=== PATIENT | female | born 1995 | race Caucasian/White ===

== ENCOUNTER 2024-01-16 12:03 | Emergency (ER) | payer OTHER, SELFPAY ==
[2024-01-16 12:05] VITALS: BP 110/58
--- NOTE | 2024-01-16 12:48 | ED.GENMED ---
History of Present Illness
<YOU Menezes Last Filed: 01/16/24 18:23>
General
Chief Complaint: Problems
Source: patient
Exam Limitations: none
Time Seen by Provider: 01/16/24 12:47
Nursing documentation reviewed up to this point in time: agreed with
History of Present Illness
History of Present Illness:
This is a 28-year-old female presenting to emergency department today with concerns of left-sided pelvic cramping. Patient estimates that she is around 7 weeks . Patient came from this with him test but has not seen an
meat specialist or family doctor yet. Patient denies any vaginal bleeding, any discharge. Patient denies any fevers or chills. Patient states that she has 2 living children currently and has had multiple miscarriages in the past and has had to have
a molar removed as well as an ectopic . Patient does have both ovaries. Patient states that her last menstrual period was 10/18/2023. Patient states that her 2 previous full-term pregnancies were unremarkable and she did not
have any issues during them. Patient denies chest pain, shortness of breath. Patient denies headache. Patient has some mild associated nausea. Patient denies any vomiting.
Past History
<Gris Hernández PA-C - Last Filed: 01/16/24 18:23>
Past History
ED Past Medical History: Psychiatric (Anxiety); Negative Asthma, HTN, Hypercholesterolemia or NIDDM
ED Past Surgical History: None
Social History
Tobacco: Other (VAPS)
Alcohol: Occasional
Personal:
Living: with family
Employment: Employed
Review of Systems
<YOU Menezes Last Filed: 01/16/24 18:23>
Review of Systems
All Other Systems: ROS reviewed and negative except as documented in HPI and ROS
Phy Exam
<Gris Hernández PA-C - Last Filed: 01/16/24 18:23>
Physical Exam
Physical Exam:
General: Patient is well appearing and in no acute distress; non-toxic
Skin: Warm and dry, no rashes or lesions
Head: Normocephalic, atraumatic
Eyes: Sclera non-icteric. EOMs intact. PERRLA.
Cardiac: Regular rate and rhythm, no murmurs.
Peripheral Vascular: No lower extremity swelling or edema
Pulm: Normal respiratory effort, equal breath sounds bilaterally
Abdomen: Left adnexal tenderness palpation. No palpable masses.
Neuro: CN II-XII intact, no focal neurologic deficits.
Psychiatric: Appropriate mood and affect.
Course
<Gris Hernández PA-C - Last Filed: 01/16/24 18:23>
Orders/Labs/Results
Orders:
Orders
01/16/24 12:48
US W Transvaginal Urgent
Reason For Exam: lower abdoominal pain 7-10 weeks
01/16/24 13:11
Type+Screen Urgent
Complete Blood Count/With Diff Urgent
Comprehensive Metabolic Panel Urgent
HCG, Beta Quantitative [Beta HCG Quantitative] Urgent
Is this a screen?: No
Abnormal Lab Results
01/16/24
13:11
Creatinine 0.5 L mg/dL
(0.6-1.0)
01/16/24 13:11
01/16/24 13:11
Vital Signs
Initial and Last Documented VS:
Initial Vital Signs
Temp Pulse BP Pulse Ox
99.0 F 86 110/58 99
01/16/24 12:05 01/16/24 12:05 01/16/24 12:05 01/16/24 12:05
Last Documented Vital Signs
Temp Pulse Resp BP Pulse Ox
98.2 F 88 16 107/66 98
01/16/24 16:33 01/16/24 16:33 01/16/24 16:33 01/16/24 16:33 01/16/24 16:33
Information
Weeks gestation: Weeks: (4)
Location: Location: (uterus)
<Eze Ceja DO - Last Filed: 01/16/24 13:21>
Orders/Labs/Results
Orders:
Orders
01/16/24 12:48
US W Transvaginal Urgent
Reason For Exam: lower abdoominal pain 7-10 weeks
01/16/24 13:11
Type+Screen Urgent
Complete Blood Count/With Diff Urgent
Comprehensive Metabolic Panel Urgent
HCG, Beta Quantitative [Beta HCG Quantitative] Urgent
Is this a screen?: No
Abnormal Lab Results
01/16/24
13:11
Creatinine 0.5 L mg/dL
(0.6-1.0)
01/16/24 13:11
01/16/24 13:11
Vital Signs
Initial and Last Documented VS:
Initial Vital Signs
Temp Pulse BP Pulse Ox
99.0 F 86 110/58 99
01/16/24 12:05 01/16/24 12:05 01/16/24 12:05 01/16/24 12:05
Last Documented Vital Signs
Temp Pulse Resp BP Pulse Ox
98.2 F 88 16 107/66 98
01/16/24 16:33 01/16/24 16:33 01/16/24 16:33 01/16/24 16:33 01/16/24 16:33
<Gris Hernández PA-C - Last Filed: 01/16/24 18:23>
MDM/Problems Addressed
Differential Diagnosis Includes:
ddx include ectopic , intrauterine , threatened , spontaneous miscarriage,'s symptoms
MDM/Problems Addressed:
Left sided pelvic pain:
This is a 28-year-old female presenting to emergency department today with concerns of left-sided pelvic cramping. Patient has no vaginal bleeding, her CBC and CMP are within normal limits, no anemia. Her beta HCG is 2,188 and her pelvic
ultrasound reveals a small intrauterine gestational sac with estimated gestational age of 4 weeks and 6 days, no embryo or heartbeat identified, however quantitative beta relatively low. This likely represents a early intrauterine and see
however a spontaneous is not a consideration. Considering these findings, patient needs to follow-up with an BUTTON RECLAIMER promptly. Patient currently has no BUTTON RECLAIMER. I advised patient to call the attached number and encourage that she call as
soon as possible. Patient stable for discharge. I reviewed case with my attending Dr. Ceja.
Chronic conditions affecting care:
ddx include anemia, ptsd, bipolar
Acute Exacerbation and/or Progression of Chronic Illness:
ddx include anemia, ptsd, bipolar
<Gris Hernández PA-C - Last Filed: 01/16/24 18:23>
*Pulse Oximetry
Patient hypoxic: no
*Critical Care Note
Total Time (30-74mins, 75-104mins- exclusive of procedures): Not Applicable
Data Reviewed
Review of Other/Old Records Reveals: Records (Reviewed ER physician documentation from 04/11/2020)
Source: patient and records
<Gris Hernández PA-C - Last Filed: 01/16/24 18:23>
Patient Management
Escalation/DeEscalation of care consider admission/obs:
Admission not indicated
ED Attending Note
<Gris Hernández PA-C - Last Filed: 01/16/24 18:23>
-
Portions of this chart may have been created with voice recognition software.� Occasional wrong word or��sound alike� substitutions may have occurred due to the inherent limitations of voice recognition software.
<Eze Ceja, - Last Filed: 01/16/24 13:21>
ED Attending Note
Patient seen and examined by attending physician: Yes
I performed the substantive portion of visit, reviewed & personally made and approve the management plan that is documented in note by myself or YAZMIN.: Yes
ED Attending Note:
Seen with PA examined independently 28-year-old female multiple prior pregnancies 2 live children 1 ectopic 1 molar numerous miscarriages presents early left lower abdominal pain nontoxic-appearing, check beta quant, type and Rh ultrasound
Discharge Plan
Departure
Patient Disposition: Home (Routine Discharge)
Date of Disposition: 01/16/24
Time of Disposition: 16:26
Patient with high blood pressure during this ER visit?: Yes
Condition: Good
Discharge Problem:
First trimester
Instructions: symptoms, BLOOD PRESSURE
Prescriptions:
No Action
Vitamin
1 tab PO DAILY
ibuprofen 600 mg Tablet
600 mg PO Q6HPRN PRN (Reason: moderate pain/cramps) Qty: 30 0RF
Referrals:
Bladimir Vargas MD [Active] - Call in 1-3 days for appt
NONE,* [Family Provider] -
Activity Restrictions/Additional Instructions:
Please return emergency department should you experience vaginal bleeding, acute increase of your pain, dizziness, chest pain, shortness of breath, or any other concerns/symptoms.
Please call the attached number to schedule follow-up with an meat specialist.
Interventions
Interventions:
*Risk Screen - Suicide Last Done: 01/16/24 12:09
*General Assessment Last Done: 01/16/24 13:02
*Neglect/Abuse Screening Last Done: 01/16/24 12:09
ED- Fall Risk Assessment Last Done: 01/16/24 13:03
*ED COVID-19 Vaccine History Last Done: 01/16/24 12:09
*Nursing Disposition Last Done: 01/16/24 16:33
ED-Female Genitourinary Assessment Last Done: 01/16/24 12:56
Discharge Date and Time
Discharge Date/Time: 01/16/24 16:34
Print Language: [place]
[2024-01-16 13:25] LABS: % Basophils 0.4 % (0-2); % Immature Granulocytes 0.1 % (0-0.5); % Lymphocytes 28.2 % (20.5-51.1); % Monocytes 6.5 % (1.7-9.3); % Neutrophils 63.8 % (42.2-75.2); Absolute Eosinophils 0.1 10^3/uL (0-0.7); Absolute Monocytes 0.5 10^3/uL (0.1-0.6); Absolute Neutrophils 4.5 10^3/uL (1.4-6.5); Hematocrit 39.7 % (37.0-47.0); Hemoglobin 13.8 g/dL (12.0-16.0); Mean Corp Hgb Conc. 34.8 g/dL (33.0-37.0); Mean Corpuscular Hgb 29.8 pg (27.0-31.0); Mean Corpuscular Volume 85.7 fL (81.0-99.0); Nucleated Red Blood Cells % 0 %; Platelet Count 283 10^3/uL (130-400); Red Blood Cell Count 4.63 10^6/uL (4.20-5.40); Red Cell Dist. Width 12.6 % (11.5-14.5); White Blood Cell Count 7.1 10^3/uL (4.8-10.8)
[2024-01-16 13:42] LABS: ALT (SGPT) 18 U/L (0-35); AST (SGOT) 22 U/L (14-36); Albumin 4.6 g/dl (3.5-5.0); Alkaline Phosphatase 47 U/L (38-126); Blood Urea Nitrogen 9 mg/dl (7-17); Calcium 9.8 mg/dl (8.4-10.2); Carbon Dioxide 24 mmol/L (22-30); Chloride 105 mmol/L (98-107); Estimated Creatinine Clearance 107 ml/min; Glucose 92 mg/dl (70-99); Potassium 3.9 mmol/L (3.5-5.1); Sodium 136 mmol/L (135-145); Total Bilirubin 0.4 mg/dl (0.2-1.3); Total Protein 7.3 g/dl (6.3-8.2); eGFR > 60.00
[2024-01-16 16:33] VITALS: BP 107/66
== END 2024-01-16 16:34 | disposition home or self-care (01) ==
LOC: EMR 12:03
PROVIDERS: Physician Assistant; EMERGENCY PHYSICIAN Emergency Medicine
DX: O99.891 Other specified diseases and conditions complicating pregnancy (principal); R10.2 Pelvic and perineal pain; O24.111 Pre-existing type 2 diabetes mellitus, in pregnancy, first trimester; Z3A.10 10 weeks gestation of pregnancy; F41.9 Anxiety disorder, unspecified; F17.290 Nicotine dependence, other tobacco product, uncomplicated
CPT/HCPCS: 99284; 76801; 76817; 80053; 84702; 85025; 86850; 86900; 86901

== ENCOUNTER 2024-01-25 14:41 | Emergency (ER) | payer OTHER, SELFPAY ==
[2024-01-25 15:05] VITALS: BP 108/56
[2024-01-25 15:35] LABS: % Basophils 0.7 % (0-2); % Eosinophils 1.3 % (0-6); % Immature Granulocytes 0.7 % (0-0.5); % Lymphocytes 35.9 % (20.5-51.1); % Monocytes 7.6 % (1.7-9.3); % Neutrophils 53.8 % (42.2-75.2); Absolute Basophils 0.1 10^3/uL (0-0.2); Absolute Eosinophils 0.1 10^3/uL (0-0.7); Absolute Immature Granulocytes 0.1 10^3/uL (0-0.05); Absolute Lymphocytes 2.4 10^3/uL (1.2-3.4); Absolute Monocytes 0.5 10^3/uL (0.1-0.6); Absolute Neutrophils 3.6 10^3/uL (1.4-6.5); Hematocrit 35.5 % (37.0-47.0); Hemoglobin 12.4 g/dL (12.0-16.0); Mean Corp Hgb Conc. 34.9 g/dL (33.0-37.0); Mean Corpuscular Hgb 30.1 pg (27.0-31.0); Mean Corpuscular Volume 86.2 fL (81.0-99.0); Mean Platelet Volume 10.2 fL (7.4-10.4); Nucleated Red Blood Cells % 0 %; Platelet Count 245 10^3/uL (130-400); Red Blood Cell Count 4.12 10^6/uL (4.20-5.40); Red Cell Dist. Width 12.4 % (11.5-14.5); White Blood Cell Count 6.7 10^3/uL (4.8-10.8)
[2024-01-25 15:45] LABS: ALT (SGPT) 15 U/L (0-35); AST (SGOT) 22 U/L (14-36); Albumin 4.3 g/dl (3.5-5.0); Alkaline Phosphatase 42 U/L (38-126); Blood Urea Nitrogen 9 mg/dl (7-17); Calcium 9.4 mg/dl (8.4-10.2); Carbon Dioxide 23 mmol/L (22-30); Chloride 106 mmol/L (98-107); Glucose 98 mg/dl (70-99); Potassium 4.2 mmol/L (3.5-5.1); Sodium 135 mmol/L (135-145); Total Bilirubin 0.4 mg/dl (0.2-1.3); Total Protein 6.6 g/dl (6.3-8.2); eGFR > 60.00
== END 2024-01-25 18:50 | disposition left against medical advice (07) ==
LOC: EMR 14:41
PROVIDERS: EMERGENCY PHYSICIAN Emergency Medicine
DX: R51.9 Headache, unspecified (principal); N93.8 Other specified abnormal uterine and vaginal bleeding; Z53.21 Procedure and treatment not carried out due to patient leaving prior to being seen by health care provider
CPT/HCPCS: 80053; 84702; 85025; 93005

== ENCOUNTER 2024-01-26 17:31 | Emergency (ER) | payer OTHER, SELFPAY ==
[2024-01-26 17:32] VITALS: BP 112/82
[2024-01-26 17:49] VITALS: BP 108/52
--- NOTE | 2024-01-26 17:50 | ED.GENMED ---
History of Present Illness
General
Chief Complaint: Problems
Source: patient and family
Exam Limitations: none
Time Seen by Provider: 01/26/24 17:41
Nursing documentation reviewed up to this point in time: agreed with
History of Present Illness
History of Present Illness:
28-year-old female presents emergency department due to vaginal bleeding and left sided pelvic pain. Small mount of vaginal bleeding yesterday, came to the emergency department left without treatment yesterday. Bleeding is similar to her menstrual
cycle. It feels similar to when she had an ectopic density. LMP October 17. A7 L2. 1 molar , 1 ectopic.
Past History
Past History
ED Past Medical History: Psychiatric (Anxiety); Negative Asthma, HTN, Hypercholesterolemia or NIDDM
ED Past Surgical History: Other (ectopic)
Social History
Tobacco: Other (VAPS)
Alcohol: Occasional
Personal:
Living: with family
Employment: Employed
Review of Systems
Review of Systems
Allergies reviewed?: Yes
All Other Systems: Not applicable
Constitutional: Reports no symptoms
EENT: Reports no symptoms
Respiratory: Reports no symptoms
Cardiac: Reports no symptoms
ABD/GI: Reports abdominal pain
: Reports bleeding
Musculoskeletal: Reports no symptoms
Skin: Reports no symptoms
Neurological: Reports no symptoms
Endocrine: Reports no symptoms
Hematologic/Lymphatic: Reports no symptoms
Psychiatric: Reports no symptoms
Phy Exam
Physical Exam
Physical Exam:
Physical Exam
General: no apparent distress, not acutely ill
Neck: supple. no meningeal signs. normal posterior pharynx
Heart: s1/s2 regular rate and rhythm, no murmur. equal radial
pulses.
HEENT: Pupils equal round reactive to light, EOMI
Lungs: no acute respiratory distress. clear bilaterally
Abdomen: normal bowel sounds. not tender. no CVAT, mild left pelvic tenderness
: deferred to OB
Neuro: alert and oriented. no focal neurological deficits
Skin: no rash
Psychiatric: well kept. interactive and cooperative
Extremities: no edema. no calf tenderness. negative homans. good distal pulses
Course
Orders/Labs/Results
Orders:
Orders
01/26/24 17:41
US 1st Trimester Urgent
Comment: TV only
Reason For Exam: vaginal bleeding, left sided pain
01/26/24 17:43
IV Insert/Care/Rem.- Treatment PRN
01/26/24 17:46
Basic Metabolic Panel Urgent
Beta HCG Quantitative Urgent
Is this a screen?: No
Complete Blood Count/With Diff Urgent
01/26/24 17:49
Lactated Ringers [Lr] 1,000 ml IV BOLUS
Abnormal Lab Results
01/26/24
17:46
RBC 4.13 L 10^6/uL
(4.20-5.40)
Hct 34.6 L %
(37.0-47.0)
Absolute Neuts (auto) 6.6 H 10^3/uL
(1.4-6.5)
Carbon Dioxide 19 L mmol/L
(22-30)
Creatinine 0.5 L mg/dL
(0.6-1.0)
Glucose 103 H mg/dl
(70-99)
Calcium 10.3 H mg/dl
(8.4-10.2)
01/26/24 17:46
01/26/24 17:46
Vital Signs
Initial and Last Documented VS:
Initial Vital Signs
Temp Pulse Resp BP Pulse Ox
98.6 F 101 16 112/82 98
01/26/24 17:32 01/26/24 17:32 01/26/24 17:32 01/26/24 17:32 01/26/24 17:32
Last Documented Vital Signs
Temp Pulse Resp BP Pulse Ox
98.6 F 69 14 112/61 99
01/26/24 17:32 01/26/24 18:31 01/26/24 18:31 01/26/24 20:42 01/26/24 20:43
Information
Weeks gestation: Weeks: (6)
Location: Location: (Intrauterine)
MDM/Problems Addressed
Differential Diagnosis Includes:
Ectopic , miscarriage
MDM/Problems Addressed:
28-year-old female subchronic hemorrhage, intrauterine , heart rate 117. Discussed with Dr. Bladimir Vargas, who recommends outpatient follow-up.
Chronic conditions affecting care: Other (Anemia)
Acute Exacerbation and/or Progression of Chronic Illness: Other (Anemia, prior miscarriages)
*Radiology
Radiology exam reviewed: radiology read reviewed (Ultrasound shows intrauterine with subchorionic hemorrhage)
*Pulse Oximetry
Patient hypoxic: no
*Critical Care Note
Total Time (30-74mins, 75-104mins- exclusive of procedures): Not Applicable
Data Reviewed
Review of Other/Old Records Reveals: Radiology Studies (Prior ultrasound showed gestational sac at 4 weeks 6 days.)
Source: records
Patient Management
Social determinants of health affecting care: Living situation
Discussion with other providers: [facility] (CERTIFIED ALCOHOL DRUG COUNSELOR Dr. Vargas)
Escalation/DeEscalation of care consider admission/obs:
Admit not indicated
ED Attending Note
-
Portions of this chart may have been created with voice recognition software.� Occasional wrong word or��sound alike� substitutions may have occurred due to the inherent limitations of voice recognition software.
Discharge Plan
Departure
Patient Disposition: Home (Routine Discharge)
Date of Disposition: 01/26/24
Time of Disposition: 20:30
Patient with high blood pressure during this ER visit?: No
Condition: Good
Discharge Problem:
Miscarriage, threatened, early
Instructions: Threatened Miscarriage (DC)
Prescriptions:
No Action
Vitamin
1 tab PO DAILY
ibuprofen 600 mg Tablet
600 mg PO Q6HPRN PRN (Reason: moderate pain/cramps) Qty: 30 0RF
Referrals:
Bladimir Vargas MD [Active] - Call in 1-3 days for appt
NONE,* [Family Provider] -
Stand Alone Forms: Return to Work
Interventions
Interventions:
*Risk Screen - Suicide Last Done: 01/26/24 21:06
*General Assessment Last Done: 01/26/24 21:06
*Neglect/Abuse Screening Last Done: 01/26/24 21:06
*Nursing Disposition Last Done: 01/26/24 21:06
ED-Female Genitourinary Assessment Last Done: 01/26/24 18:05
Discharge Date and Time
Discharge Date/Time: 01/26/24 21:08
Print Language: YORU[place]
[2024-01-26 17:54] VITALS: BMI 21.3
[2024-01-26] MEDS: LR 1000 IV (17:55)
[2024-01-26 18:00] VITALS: BP 104/58
[2024-01-26 18:03] LABS: % Basophils 0.6 % (0-2); % Eosinophils 0.4 % (0-6); % Immature Granulocytes 0.3 % (0-0.5); % Monocytes 5.8 % (1.7-9.3); % Neutrophils 65.9 % (42.2-75.2); Absolute Basophils 0.1 10^3/uL (0-0.2); Absolute Lymphocytes 2.7 10^3/uL (1.2-3.4); Absolute Monocytes 0.6 10^3/uL (0.1-0.6); Absolute Neutrophils 6.6 10^3/uL (1.4-6.5); Hematocrit 34.6 % (37.0-47.0); Hemoglobin 12.5 g/dL (12.0-16.0); Mean Corp Hgb Conc. 36.1 g/dL (33.0-37.0); Mean Corpuscular Hgb 30.3 pg (27.0-31.0); Mean Corpuscular Volume 83.8 fL (81.0-99.0); Mean Platelet Volume 9.9 fL (7.4-10.4); Nucleated Red Blood Cells % 0 %; Platelet Count 259 10^3/uL (130-400); Red Blood Cell Count 4.13 10^6/uL (4.20-5.40); Red Cell Dist. Width 12.3 % (11.5-14.5)
[2024-01-26 18:10] LABS: Blood Urea Nitrogen 7 mg/dl (7-17); Calcium 10.3 mg/dl (8.4-10.2); Carbon Dioxide 19 mmol/L (22-30); Chloride 106 mmol/L (98-107); Estimated Creatinine Clearance 102 ml/min; Glucose 103 mg/dl (70-99); Potassium 3.8 mmol/L (3.5-5.1); Sodium 136 mmol/L (135-145); eGFR > 60.00
[2024-01-26 20:42] VITALS: BP 112/61
== END 2024-01-26 21:08 | disposition home or self-care (01) ==
LOC: EMR 17:31
PROVIDERS: EMERGENCY PHYSICIAN Emergency Medicine
DX: O20.0 Threatened abortion (principal); Z3A.01 Less than 8 weeks gestation of pregnancy; D64.9 Anemia, unspecified; I10 Essential (primary) hypertension; E11.9 Type 2 diabetes mellitus without complications; F17.290 Nicotine dependence, other tobacco product, uncomplicated
CPT/HCPCS: 99284; 96360; 76801; 80048; 84702; 85025

== ENCOUNTER 2024-03-13 12:27 | Emergency (ER) | payer SELFPAY ==
[2024-03-13 12:31] VITALS: BP 137/85
--- NOTE | 2024-03-13 13:00 | EDRN ---
Lab unable to add depakane level on to SST. Blood not obtained at this time.
--- NOTE | 2024-03-13 13:34 | ED.GENMED ---
History of Present Illness
General
Chief Complaint: Dental Problem
Source: patient
Time Seen by Provider: 03/13/24 12:53
History of Present Illness
History of Present Illness:
28yoF currently around 14 weeks presenting for evaluation of dental pain. She has been having right upper dental pain ongoing for a year. The pain has become worse over the past several months. She was seen by a dentist last week and was
referred to an oral surgeon for wisdom tooth removal. She was unable to make an appointment until 2 months from now. She was told by the dentist that her dental infection may affect her . She was prescribed amoxicillin but the dentist told
her that they were unsure if it was safe in so she never started it. She has been taking Tylenol without much relief. No fevers. She has no abdominal pain or vaginal bleeding. She was seen in the ED on 01/26/24.
Past History
Past History
ED Past Medical History: Psychiatric (Anxiety); Negative Asthma, HTN, Hypercholesterolemia or NIDDM
ED Past Surgical History: Other (ectopic)
Social History
Tobacco: Other (VAPS)
Alcohol: Occasional
Personal:
Living: with family
Employment: Employed
Phy Exam
General Physical Exam
General Presentation: well appearing and no apparent distress
General age: appears stated age
General Skin: warm and dry
General Habitus: normal
General Mental: alert
ENT Exam
ENT Exam: other (No dental abscess or facial swelling noted. No elevation of floor of mouth. )
Cardiovascular Exam
Cardiovascular Exam: regular rate/rhythm
Pulmonary Exam
Pulmonary Exam: no respiratory distress
Gastrointestinal Exam
Gastrointestinal Exam: non tender, soft and non distended
Skin Exam
Skin Exam: normal color and warm/dry
Psychiatric Exam
Psychiatric Exam: normal mood/affect
Course
Orders/Labs/Results
Orders:
Orders
03/13/24 13:15
Heart Tones ONCE
Vital Signs
Initial and Last Documented VS:
Initial Vital Signs
Temp Pulse Resp BP Pulse Ox
98.9 F 114 18 137/85 97
03/13/24 12:31 03/13/24 12:31 03/13/24 12:31 03/13/24 12:31 03/13/24 12:31
Last Documented Vital Signs
Temp Pulse Resp BP Pulse Ox
98.9 F 114 18 137/85 97
03/13/24 12:31 03/13/24 12:31 03/13/24 12:31 03/13/24 12:31 03/13/24 12:31
MDM/Problems Addressed
Differential Diagnosis Includes:
28yoF here with dental pain x 1 year. Currently 14 weeks . Saw the dentist last week and was told that her dental infection may affect her . She has no complaints at this time. She is afebrile and hemodynamically stable.
She is well appearing in no distress. No dental abscess or facial swelling on exam. No clinical evidence of Amilcar's.
She was prescribed amoxicillin by her dentist last week which she did not start. She was encouraged to start this. A bedside ultrasound was performed by me. cardiac activity noted as well as movement. She was advised to f/u with OBGYN to
initiate care. Advised PRN Tylenol for pain. She was discharged in stable condition.
*Critical Care Note
Total Time (30-74mins, 75-104mins- exclusive of procedures): Not Applicable
ED Attending Note
-
Portions of this chart may have been created with voice recognition software.� Occasional wrong word or��sound alike� substitutions may have occurred due to the inherent limitations of voice recognition software.
Discharge Plan
Departure
Patient Disposition: Home (Routine Discharge)
Date of Disposition: 03/13/24
Time of Disposition: 13:54
Patient with high blood pressure during this ER visit?: No
Discharge Problem:
Dentalgia
Instructions: Dental Pain (DC)
Prescriptions:
No Action
Vitamin
1 tab PO DAILY
ibuprofen 600 mg Tablet
600 mg PO Q6HPRN PRN (Reason: moderate pain/cramps) Qty: 30 0RF
Referrals:
NONE,* [Family Provider] -
Yeni Woods MD [Active] -
Stand Alone Forms: Return to Work
Activity Restrictions/Additional Instructions:
Start taking amoxicillin as prescribed by your dentist. Take Tylenol 650mg every 6 hours as needed for pain.
Please call today to schedule an initial appointment with OBGYN. Return to the ER with any worsening symptoms.
Interventions
Interventions:
*Risk Screen - Suicide Last Done: 03/13/24 13:00
*General Assessment Last Done: 03/13/24 12:31
*Neglect/Abuse Screening Last Done: 03/13/24 13:00
*ED COVID-19 Vaccine History Last Done: 03/13/24 12:31
*Nursing Disposition Last Done: 03/13/24 14:22
Discharge Date and Time
Discharge Date/Time: 03/13/24 14:22
Print Language: CHINESE
== END 2024-03-13 14:22 | disposition home or self-care (01) ==
LOC: EMR 12:27
PROVIDERS: EMERGENCY PHYSICIAN Emergency Medicine
DX: O99.612 Diseases of the digestive system complicating pregnancy, second trimester (principal); K08.89 Other specified disorders of teeth and supporting structures; Z3A.14 14 weeks gestation of pregnancy; F17.290 Nicotine dependence, other tobacco product, uncomplicated
CPT/HCPCS: 99283

== ENCOUNTER 2024-03-13 19:18 | Emergency (ER) | payer SELFPAY ==
[2024-03-13 19:37] VITALS: BP 117/63
[2024-03-13 19:57] LABS: % Basophils 0.4 % (0-2); % Eosinophils 0.8 % (0-6); % Immature Granulocytes 0.2 % (0-0.5); % Lymphocytes 22.2 % (20.5-51.1); % Monocytes 6.7 % (1.7-9.3); % Neutrophils 69.7 % (42.2-75.2); Absolute Eosinophils 0.1 10^3/uL (0-0.7); Absolute Lymphocytes 2.2 10^3/uL (1.2-3.4); Absolute Monocytes 0.7 10^3/uL (0.1-0.6); Hematocrit 32.4 % (37.0-47.0); Hemoglobin 11.8 g/dL (12.0-16.0); Mean Corp Hgb Conc. 36.4 g/dL (33.0-37.0); Mean Corpuscular Hgb 30.2 pg (27.0-31.0); Mean Corpuscular Volume 82.9 fL (81.0-99.0); Mean Platelet Volume 9.9 fL (7.4-10.4); Nucleated Red Blood Cells % 0 %; Platelet Count 254 10^3/uL (130-400); Red Blood Cell Count 3.91 10^6/uL (4.20-5.40); Red Cell Dist. Width 12.5 % (11.5-14.5)
[2024-03-13 21:33] VITALS: BMI 22.2
[2024-03-13 21:35] VITALS: BP 108/64
[2024-03-13 21:36] LABS: Albumin 4.1 g/dl (3.5-5.0); Alkaline Phosphatase 58 U/L (38-126); Blood Urea Nitrogen 9 mg/dl (7-17); Calcium 9.8 mg/dl (8.4-10.2); Carbon Dioxide 22 mmol/L (22-30); Chloride 106 mmol/L (98-107); Glucose 90 mg/dl (70-99); Potassium 4.1 mmol/L (3.5-5.1); Sodium 138 mmol/L (135-145); Total Bilirubin 0.3 mg/dl (0.2-1.3); Total Protein 6.9 g/dl (6.3-8.2); eGFR > 60.00
[2024-03-13 21:37] LABS: ALT (SGPT) 12 U/L (0-35); AST (SGOT) 20 U/L (14-36)
--- NOTE | 2024-03-13 22:41 | ED.GENMED ---
History of Present Illness
General
Chief Complaint: Problems
Source: patient
Exam Limitations: none
Time Seen by Provider: 03/13/24 21:37
Nursing documentation reviewed up to this point in time: agreed with
History of Present Illness
History of Present Illness:
28-year-old female with no significant chronic medical issues who is a [id number] currently 14 weeks who presents to the emergency room for evaluation of abdominal cramping and vaginal bleeding. Symptoms started tonight�she says initially she
had some light bleeding which has become a bit heavier over the past hour or 2. She says that it is about the level of a normal menstrual period. She denies passing any clots or tissue. She says she has also had some lower abdominal cramping and
some pressure in her low back. She denies any recent fevers or chills. She says she has not had any bleeding with this during . She has had multiple miscarriages in the past. She does not currently have an ROUSTABOUT due to insurance issues
but says that she recently obtained insurance through her spouse and is searching for a new OB.
Past History
Past History
ED Past Medical History: Psychiatric (Anxiety); Negative Asthma, HTN, Hypercholesterolemia or NIDDM
ED Past Surgical History: Other (ectopic)
Social History
Tobacco: Other (VAPS)
Alcohol: Occasional
Personal:
Living: with family
Employment: Employed
Review of Systems
Review of Systems
All Other Systems: ROS reviewed and negative except as documented in HPI and ROS
Constitutional: Denies fever or chills
Respiratory: Denies trouble breathing
Cardiac: Denies chest pain
ABD/GI: Reports abdominal pain; Denies nausea or vomiting
: Reports bleeding; Denies flank pain
Musculoskeletal: Denies neck pain or back pain
Neurological: Denies headache
Phy Exam
Physical Exam
Physical Exam:
General: Awake, alert; no acute distress
Head: Normocephalic, atraumatic
Eyes: Conjunctiva normal
Throat: Airway intact, handling secretions
Neck: Trachea midline
Lungs: Clear to auscultation bilaterally, no wheezing, rales, rhonchi
Heart: Regular rate and rhythm, no murmurs, gallops, or rubs
Abd: Soft, non distended, mildly tender across lower abdomen
Pelvic: Performed with female nursing negative stripper�scant blood in vagina, closed cervix
Neuro: No gross deficits
Extremities: Warm well-perfused
Scores
Heart Failure Risk
Heart Failure Risk Score: Not Applicable
Heart Score for Chest Pain Patients
STEMI patient?: Not applicable
Withdrawal Assessment of Alcohol
Withdrawal Assessment Completed?: Not applicable
Course
Orders/Labs/Results
Orders:
Orders
03/13/24 19:46
CBC/With Diff [Complete Blood Count/With Diff] Urgent
CMP [Comprehensive Metabolic Panel] Urgent
HCG, Beta Quantitative [Beta HCG Quantitative] Urgent
Is this a screen?: No
03/13/24 21:39
US Limited Urgent
Reason For Exam: cramping, spotting (14 wk preg)
Abnormal Lab Results
03/13/24
19:46
RBC 3.91 L 10^6/uL
(4.20-5.40)
Hgb 11.8 L g/dL
(12.0-16.0)
Hct 32.4 L %
(37.0-47.0)
Absolute Neuts (auto) 7.0 H 10^3/uL
(1.4-6.5)
Absolute Monos (auto) 0.7 H 10^3/uL
(0.1-0.6)
Creatinine 0.5 L mg/dL
(0.6-1.0)
03/13/24 19:46
03/13/24 19:46
Vital Signs
Initial and Last Documented VS:
Initial Vital Signs
Temp Pulse Resp BP Pulse Ox
36.9 C 85 18 117/63 98
03/13/24 19:37 03/13/24 19:37 03/13/24 19:37 03/13/24 19:37 03/13/24 19:37
Last Documented Vital Signs
Temp Pulse Resp BP Pulse Ox
36.7 C 85 18 108/77 99
03/13/24 21:36 03/13/24 19:37 03/13/24 19:37 03/14/24 00:04 03/13/24 22:41
Information
Weeks gestation: Weeks: (14)
Location: N/A
MDM/Problems Addressed
Differential Diagnosis Includes:
Threatened AB, inevitable AB, missed AB
MDM/Problems Addressed:
28-year-old female A7 who is 14 weeks presents with vaginal bleeding and lower abdominal cramping. Vitals are normal. Physical exam as above. Plan to check basic labs, lower abdominal ultrasound. Reassess after the above.
Labs reviewed: CBC shows marginal anemia, CMP no clinically significant abnormalities. Awaiting results of lower abdominal ultrasound, will discuss with ROUSTABOUT pending results.
Ultrasound shows single live IUP except for heart tones; moderate subchorionic hemorrhage. Cervix is closed. Diagnosis: Threatened . Discussed with ROUSTABOUT as patient previously did not have ROUSTABOUT due to insurance issues but
recently obtained insurance through her spouse. They will follow-up with patient as an outpatient. Spoke to patient in detail about risk miscarriage, return precautions and follow-up plan. All questions answered.
*Radiology
Radiology exam reviewed: radiology read reviewed
*Pulse Oximetry
Patient hypoxic: no
*Critical Care Note
Total Time (30-74mins, 75-104mins- exclusive of procedures): Not Applicable
Data Reviewed
Source: patient, records and spouse
Patient Management
Discussion with other providers: Healthcare Financial Analyst (Discussed with ROUSTABOUT)
ED Attending Note
-
Portions of this chart may have been created with voice recognition software.� Occasional wrong word or��sound alike� substitutions may have occurred due to the inherent limitations of voice recognition software.
Discharge Plan
Departure
Patient Disposition: Home (Routine Discharge)
Date of Disposition: 03/14/24
Time of Disposition: 00:08
Patient with high blood pressure during this ER visit?: No
Discharge Problem:
Threatened
Instructions: Threatened Miscarriage (DC)
Prescriptions:
No Action
Vitamin
1 tab PO DAILY
ibuprofen 600 mg Tablet
600 mg PO Q6HPRN PRN (Reason: moderate pain/cramps) Qty: 30 0RF
Referrals:
Yeni Woods MD [Active] - Call in 1-3 days for appt (ROUSTABOUT)
Stand Alone Forms: Return to Work
Activity Restrictions/Additional Instructions:
Thank you for visiting the Emergency Department at [facility].
1. Please schedule a follow up appointment as directed. Call first thing tomorrow morning to make an appointment.
2. If indicated, please take your medications as instructed and indicated on discharge paperwork.
3. If any of your symptoms do not improve, or persist, or become more severe within 6-12 hours, please return to the emergency department for further care.
4. Please return to the emergency department if you develop a headache, neck pain/stiffness, fever greater than 100.4F, chest pain, shortness of breath, persistent nausea, vomiting, slurred speech, difficulty walking, numbness/tingling, weakness,
signs of infection or any other symptoms that are worrisome to you.
Please call [phone] if you have any questions.
Interventions
Interventions:
*Risk Screen - Suicide Last Done: 03/13/24 21:33
*General Assessment Last Done: 03/13/24 21:33
*Neglect/Abuse Screening Last Done: 03/13/24 21:33
ED- Fall Risk Assessment Last Done: 03/14/24 00:15
*ED COVID-19 Vaccine History Last Done: 03/13/24 21:33
*Nursing Disposition Last Done: 03/14/24 00:15
ED-Female Genitourinary Assessment Last Done: 03/13/24 21:33
Discharge Date and Time
Discharge Date/Time: 03/14/24 00:15
Print Language: [place] ISLANDER
[2024-03-14 00:04] VITALS: BP 108/77
== END 2024-03-14 00:15 | disposition home or self-care (01) ==
LOC: EMR 19:18
PROVIDERS: Emergency Medicine; EMERGENCY PHYSICIAN Emergency Medicine
DX: O20.0 Threatened abortion (principal); Z3A.14 14 weeks gestation of pregnancy
CPT/HCPCS: 99284; 76815; 80053; 84702; 85025

== ENCOUNTER 2024-04-11 13:49 | Emergency (ER) | payer SELFPAY ==
[2024-04-11 13:49] VITALS: BMI 22.5
[2024-04-11 13:51] VITALS: BP 106/60
[2024-04-11 16:23] VITALS: BP 108/59
--- NOTE | 2024-04-11 16:31 | ED.GENMED ---
History of Present Illness
General
Chief Complaint: Problems
Time Seen by Provider: 04/11/24 16:23
History of Present Illness
History of Present Illness:
28-year-old female, , currently 18 weeks gestational age presents the emergency department for increased vaginal bleeding. She has a known subchorionic hemorrhage that was diagnosed 2 months ago at this hospital. She was recommended to
follow-up with LABORATORY EQUIPMENT CLEANER but was unable to due to insurance difficulties. States the bleeding comes and goes but over the past week has been increased, using approximate 4 pads per day. Denies any dizziness or lightheadedness. Denies any pelvic pain.
She is taking her vitamin
Past History
Past History
ED Past Medical History: Psychiatric (Anxiety); Negative Asthma, HTN, Hypercholesterolemia or NIDDM
ED Past Surgical History: Other (ectopic)
Social History
Tobacco: Other (VAPS)
Alcohol: Occasional
Personal:
Living: with family
Employment: Employed
Review of Systems
Review of Systems
Allergies reviewed?: Yes
All Other Systems: ROS reviewed and negative except as documented in HPI and ROS
Phy Exam
Physical Exam
Physical Exam:
GEN: Well appearing, NAD, WDWN
HEENT: Oral mucosa moist, no scleral icterus
Cardiac: Regular rate
Lung: No respiratory distress, no tachypnea
MSK: No gross deformity or injuries
Skin: Good color, no pallor or jaundice, no rashes
Neuro: AO x3, moves all extremities freely
Psych: Calm, cooperative
Course
Orders/Labs/Results
Orders:
Orders
04/11/24 16:29
US Limited Urgent
Comment:
Reason For Exam: increased vaginal bleeding 18wk preg
04/11/24 16:42
Blood Group&Type Urgent
Basic Metabolic Panel Urgent
Complete Blood Count/With Diff Urgent
Abnormal Lab Results
04/11/24
16:42
RBC 3.63 L 10^6/uL
(4.20-5.40)
Hgb 10.8 L g/dL
(12.0-16.0)
Hct 30.2 L %
(37.0-47.0)
Carbon Dioxide 18 L mmol/L
(22-30)
Creatinine 0.4 L mg/dL
(0.6-1.0)
04/11/24 16:42
04/11/24 16:42
Vital Signs
Initial and Last Documented VS:
Initial Vital Signs
Temp Pulse Resp BP Pulse Ox
98.1 F 74 20 106/60 99
04/11/24 13:51 04/11/24 13:51 04/11/24 13:51 04/11/24 13:51 04/11/24 13:51
Last Documented Vital Signs
Temp Pulse Resp BP Pulse Ox
98.1 F 70 18 103/61 99
04/11/24 13:51 04/11/24 18:00 04/11/24 18:00 04/11/24 18:00 04/11/24 18:00
Information
Weeks gestation: Weeks: (18)
Location: Location: (iup)
MDM/Problems Addressed
MDM/Problems Addressed:
Ultrasound without significant change, potentially increased volume of subchorionic bleed. Educated the patient on the importance of strict pelvic rest and need for close SEX THERAPIST follow-up
*Critical Care Note
Total Time (30-74mins, 75-104mins- exclusive of procedures): Not Applicable
ED Attending Note
-
Portions of this chart may have been created with voice recognition software.� Occasional wrong word or��sound alike� substitutions may have occurred due to the inherent limitations of voice recognition software.
Discharge Plan
Departure
Patient Disposition: Home (Routine Discharge)
Date of Disposition: 09/20/24
Time of Disposition: 18:12
Patient with high blood pressure during this ER visit?: No
Discharge Problem:
Subchorionic hemorrhage
Instructions: Subchorionic Bleeding
Prescriptions:
No Action
Vitamin
1 tab PO DAILY
ibuprofen 600 mg Tablet
600 mg PO Q6HPRN PRN (Reason: moderate pain/cramps) Qty: 30 0RF
Referrals:
Bladimir Vargas MD [Active] - Call in 1-3 days for appt
Activity Restrictions/Additional Instructions:
It is extremely important for you to follow-up with SEX THERAPIST
We must recommend strict pelvic rest which includes no physical exertion, no lifting greater than 10 pounds, and no sexual intercourse.
Ultrasound shows slight increase in the amount of bleeding however no immediate threat to your baby at this time
Interventions
Interventions:
*General Assessment Last Done: 04/11/24 13:51
ED-Female Genitourinary Assessment Last Done: 04/11/24 16:48
Discharge Date and Time
Print Language: AMHARIC
[2024-04-11 16:52] LABS: % Basophils 0.3 % (0-2); % Eosinophils 1.3 % (0-6); % Immature Granulocytes 0.3 % (0-0.5); % Lymphocytes 26.5 % (20.5-51.1); % Monocytes 6.3 % (1.7-9.3); % Neutrophils 65.3 % (42.2-75.2); Absolute Eosinophils 0.1 10^3/uL (0-0.7); Absolute Lymphocytes 2.3 10^3/uL (1.2-3.4); Absolute Monocytes 0.6 10^3/uL (0.1-0.6); Absolute Neutrophils 5.7 10^3/uL (1.4-6.5); Hematocrit 30.2 % (37.0-47.0); Hemoglobin 10.8 g/dL (12.0-16.0); Mean Corp Hgb Conc. 35.8 g/dL (33.0-37.0); Mean Corpuscular Hgb 29.8 pg (27.0-31.0); Mean Corpuscular Volume 83.2 fL (81.0-99.0); Mean Platelet Volume 10.1 fL (7.4-10.4); Nucleated Red Blood Cells % 0 %; Platelet Count 256 10^3/uL (130-400); Red Blood Cell Count 3.63 10^6/uL (4.20-5.40); Red Cell Dist. Width 12.6 % (11.5-14.5); White Blood Cell Count 8.8 10^3/uL (4.8-10.8)
[2024-04-11 17:06] LABS: Blood Urea Nitrogen 9 mg/dl (7-17); Calcium 9.3 mg/dl (8.4-10.2); Carbon Dioxide 18 mmol/L (22-30); Chloride 104 mmol/L (98-107); Estimated Creatinine Clearance 102 ml/min; Glucose 91 mg/dl (70-99); Potassium 3.9 mmol/L (3.5-5.1); Sodium 136 mmol/L (135-145); eGFR > 60.00
[2024-04-11 18:00] VITALS: BP 103/61
== END 2024-04-11 18:33 | disposition home or self-care (01) ==
LOC: EMR 13:49
PROVIDERS: Physician Assistant; EMERGENCY PHYSICIAN Emergency Medicine
DX: O46.8X2 Other antepartum hemorrhage, second trimester (principal); Z3A.18 18 weeks gestation of pregnancy
CPT/HCPCS: 99284; 76815; 80048; 85025; 86900; 86901

== ENCOUNTER 2024-08-13 16:38 | Observation (INO) | payer SELFPAY ==
[2024-08-13 16:47] VITALS: BP 127/72
[2024-08-13 17:35] LABS: % Basophils 0.3 % (0-2); % Eosinophils 0.1 % (0-6); % Immature Granulocytes 0.5 % (0-0.5); % Lymphocytes 12.7 % (20.5-51.1); % Monocytes 4.8 % (1.7-9.3); % Neutrophils 81.6 % (42.2-75.2); Absolute Basophils 0.1 10^3/uL (0-0.2); Absolute Immature Granulocytes 0.1 10^3/uL (0-0.05); Absolute Lymphocytes 2.1 10^3/uL (1.2-3.4); Absolute Monocytes 0.8 10^3/uL (0.1-0.6); Absolute Neutrophils 13.5 10^3/uL (1.4-6.5); Hematocrit 33.3 % (37.0-47.0); Hemoglobin 11.2 g/dL (12.0-16.0); Mean Corp Hgb Conc. 33.6 g/dL (33.0-37.0); Mean Corpuscular Hgb 28.4 pg (27.0-31.0); Mean Corpuscular Volume 84.3 fL (81.0-99.0); Mean Platelet Volume 10.9 fL (7.4-10.4); Nucleated Red Blood Cells % 0 %; Platelet Count 223 10^3/uL (130-400); Red Blood Cell Count 3.95 10^6/uL (4.20-5.40); Red Cell Dist. Width 13.5 % (11.5-14.5); White Blood Cell Count 16.6 10^3/uL (4.8-10.8)
[2024-08-13] MEDS: LR 1000 IV (17:39)
[2024-08-13 17:49] LABS: ALT (SGPT) 14 U/L (0-35); AST (SGOT) 20 U/L (14-36); Albumin 4.1 g/dl (3.5-5.0); Alkaline Phosphatase 171 U/L (38-126); Blood Urea Nitrogen 3 mg/dl (7-17); Carbon Dioxide 19 mmol/L (22-30); Chloride 104 mmol/L (98-107); Glucose 104 mg/dl (70-99); Potassium 3.4 mmol/L (3.5-5.1); Sodium 134 mmol/L (135-145); Total Bilirubin 0.2 mg/dl (0.2-1.3); Total Protein 7.2 g/dl (6.3-8.2); eGFR > 60.00
[2024-08-13 18:07] LABS: Amphetamines Negative (Negative); Barbiturates Negative (Negative); Benzodiazepines Negative (Negative); Buprenorphine Negative (Negative); Cocaine Negative (Negative); Marijuana Positive (Negative); Methadone Negative (Negative); Methamphetamines Negative (Negative); Opiates Negative (Negative); Phencyclidine Negative (Negative); Tricyclic Antidepressants Negative (Negative)
[2024-08-13 18:15] LABS: Protein/creatinine Ratio 0.2; Urine Protein 12 mg/dl
[2024-08-13] MEDS: CELESTONE SOLUSPAN 2 MG IM (19:20)
== END 2024-08-13 20:11 | disposition home or self-care (01) ==
LOC: LDRP 16:38
PROVIDERS: ADMITTING PHYSICIAN Obstetrics & Gynecology
DX: O60.03 Preterm labor without delivery, third trimester (principal); O09.33 Supervision of pregnancy with insufficient antenatal care, third trimester; Z3A.34 34 weeks gestation of pregnancy; O99.323 Drug use complicating pregnancy, third trimester; N80.9 Endometriosis, unspecified; F11.91 Opioid use, unspecified, in remission; F12.90 Cannabis use, unspecified, uncomplicated; Z88.2 Allergy status to sulfonamides; Z88.1 Allergy status to other antibiotic agents; Z91.013 Allergy to seafood; Z91.410 Personal history of adult physical and sexual abuse; Z28.310 Unvaccinated for COVID-19; Z59.71 Insufficient health insurance coverage
CPT/HCPCS: 76805; 76815; 80053; 80306; 82570; 84156; 85025; 86850; 86900; 86901; 87070; 87086; 87491; 87591; G0378

== ENCOUNTER 2024-08-24 04:42 | Inpatient (IN) | payer MEDICAID, SELFPAY ==
[2024-08-24 05:13] VITALS: BMI 24.4
[2024-08-24] MEDS: LR 1000 IV (05:25)
[2024-08-24 05:43] LABS: % Basophils 0.3 % (0-2); % Eosinophils 0.1 % (0-6); % Immature Granulocytes 0.6 % (0-0.5); % Lymphocytes 7.9 % (20.5-51.1); % Monocytes 5.2 % (1.7-9.3); % Neutrophils 85.9 % (42.2-75.2); Absolute Basophils 0.1 10^3/uL (0-0.2); Absolute Immature Granulocytes 0.2 10^3/uL (0-0.05); Absolute Lymphocytes 1.8 10^3/uL (1.2-3.4); Absolute Monocytes 1.2 10^3/uL (0.1-0.6); Absolute Neutrophils 19.9 10^3/uL (1.4-6.5); Hematocrit 33.9 % (37.0-47.0); Hemoglobin 11.3 g/dL (12.0-16.0); Mean Corp Hgb Conc. 33.3 g/dL (33.0-37.0); Mean Corpuscular Hgb 28.2 pg (27.0-31.0); Mean Corpuscular Volume 84.5 fL (81.0-99.0); Mean Platelet Volume 11.2 fL (7.4-10.4); Nucleated Red Blood Cells % 0 %; Platelet Count 228 10^3/uL (130-400); Red Blood Cell Count 4.01 10^6/uL (4.20-5.40); Red Cell Dist. Width 13.6 % (11.5-14.5); White Blood Cell Count 23.2 10^3/uL (4.8-10.8)
[2024-08-24 06:03] LABS: Amphetamines Negative (Negative); Barbiturates Negative (Negative); Benzodiazepines Negative (Negative); Buprenorphine Negative (Negative); Cocaine Negative (Negative); Marijuana Positive (Negative); Methadone Negative (Negative); Methamphetamines Negative (Negative); Opiates Negative (Negative); Phencyclidine Negative (Negative); Tricyclic Antidepressants Negative (Negative)
[2024-08-24] MEDS: SUBLIMAZE 100 MCG EPIDURAL (06:04)
[2024-08-24] MEDS: FENTANYL/BUPIVACAINE 100 EPIDURAL (06:04)
[2024-08-25 05:29] LABS: Hemoglobin 9.5 g/dL (12.0-16.0)
--- NOTE | 2024-08-25 10:58 | CM ---
Addendum entered by Grace Peters 08/25/24 15:26:
Received call from Rocio Tiffani from [facility] [phone]
Reports she will contact mom and plans to meet with her tomorrow.
Original Note:
Met with new parents Josseline and Pop Waters at mom's bedside
Mom reports she lives at [address], [place] [address] with FOB - Pop, her 2 children Olivier Alatorre (5), Anoop Waters (2), and her [id number].
Parents have named their Matthieu Waters
Mom reports she plans to breast and bottle feed infant - has breast pump
Mom reports she has supplies at home for infant - has car seat and crib
Peds for infant will be [facility] - other children are pts there as well
Discussed mom's care - mom reports she [facility] at [facility] and [facility]. Reports issues with insurance - now has coverage
Mom acknowledges hx of anxiety. Reports has a therapist she communicates with as needed - Sarahi Kenny. Currently no medications
Discussed PP depression score - 11; reports she feels ok, does not feel depressed - will contact therapist if she feels she needs to
Mom had + toxicology screen - marijuana - discussed with mom - reports she hasn't used marijuana, does not have medical marijuana card
Meconium tox screen sent
Parents aware report will be filled with [facility]
Discussed [facility]. Mom reports was enrolled in program at last - would like to be referred again - CM will make referral to Program. Mom given brochure
Called [facility] to file report - spoke with Siomara # [phone]
Report made
Plan - Await C&Y evaluation/determination regarding discharge; CM will follow
[2024-08-25] MEDS: PRENATAL PLUS PO (15:27)
[2024-08-26] MEDS: SENOKOT-S 1 TABLET PO (08:42)
[2024-08-26] MEDS: PRENATAL PLUS 1 TABLET PO (08:42)
[2024-08-26 11:35] LABS: Syphilis/T. pallidum Ab Reflex Negative (Negative)
--- NOTE | 2024-08-26 13:36 | CM ---
Rocio Nixon, [facility] egg caser at hospital to conduct assessment with mother, Plan of Safe Care meeting held. Mother confirms she lives with father of child, two other children, and PGM Mirian Waters. Mother will be
scheduling bulk plant operator appointment for baby at [facility]. Mother denies substance history/providers, does have a long standing therapist who she speaks with regularly. Mother confirms they have a lock box at home for any medications. Father
of child not present for Plan of Safe Care, assessment will be completed in the home per C[facility]. Mother confirms she has support from her best friend and fathers mother.
Per Rocio, no safety plan is needed at this time. Mother agreeable to referrals to [facility], [facility], and the Maternal VN program. Mother reports she does have insurance for herself at this time and will follow up
with [facility].
Plan; home when medically stable, no safety plan per [facility]
== END 2024-08-26 15:47 | disposition home or self-care (01) | DRG 805 ==
LOC: LDRP 04:42
PROVIDERS: Obstetrics & Gynecology; ADMITTING PHYSICIAN Obstetrics & Gynecology
PROC: 10E0XZZ Delivery of Products of Conception, External Approach (ICD-10-PCS; 2024-08-24)
PROC: 10907ZC Drainage of Amniotic Fluid, Therapeutic from Products of Conception, Via Natural or Artificial Opening (ICD-10-PCS; 2024-08-24)
DX: O60.14X0 Preterm labor third trimester with preterm delivery third trimester, not applicable or unspecified (principal); O45.93 Premature separation of placenta, unspecified, third trimester; Z37.0 Single live birth; Z3A.36 36 weeks gestation of pregnancy; O76 Abnormality in fetal heart rate and rhythm complicating labor and delivery; O90.81 Anemia of the puerperium; D64.9 Anemia, unspecified
CPT/HCPCS: 88307; 80306; 85014; 85018; 85025; 86780; 86850; 86900; 86901

== ENCOUNTER 2025-03-02 10:57 | Emergency (ER) | payer MEDICAID, SELFPAY ==
[2025-03-02 11:15] VITALS: BP 119/79
[2025-03-02 11:41] LABS: Hematocrit 35.3 % (37.0-47.0); Hemoglobin 11.6 g/dL (12.0-16.0); Mean Corp Hgb Conc. 32.9 g/dL (33.0-37.0); Mean Corpuscular Volume 84.4 fL (81.0-99.0); Nucleated Red Blood Cells % 0 %; Platelet Count 231 10^3/uL (130-400); Red Cell Dist. Width 13.9 % (11.5-14.5)
[2025-03-02 12:09] LABS: HCG, Serum Qualitative Screen Negative
[2025-03-02 12:14] LABS: ALT (SGPT) < 10 U/L (0-35); AST (SGOT) 16 U/L (14-36); Albumin 4.5 g/dl (3.5-5.0); Alkaline Phosphatase 52 U/L (38-126); Blood Urea Nitrogen 8 mg/dl (7-17); Calcium 9.6 mg/dl (8.4-10.2); Carbon Dioxide 22 mmol/L (22-30); Chloride 108 mmol/L (98-107); Glucose 119 mg/dl (70-99); Potassium 4.0 mmol/L (3.5-5.1); Sodium 138 mmol/L (135-145); Total Protein 7.1 g/dl (6.3-8.2); eGFR > 60.00
--- NOTE | 2025-03-02 15:35 | ED.GENMED ---
History of Present Illness
General
Chief Complaint: Oral/Mouth Problem
Source: patient
Exam Limitations: none
Time Seen by Provider: 03/02/25 14:38
Nursing documentation reviewed up to this point in time: agreed with
History of Present Illness
History of Present Illness:
29 yr old female presents to the ER for evaluation. She has had chronic multiple tooth infections and was prescribed amoxicillin 5 days ago. She was instructed to come to the ER to get a' referral for oral surgery.' She does report prior to the
amoxicillin she had right-sided facial swelling however that has since resolved. She does feel that there is a opening around the right upper tooth in the gum area. She denies any difficulty swallowing denies any fever or chills.
Past History
Past History
ED Past Medical History: Psychiatric (Anxiety); Negative Asthma, HTN, Hypercholesterolemia or NIDDM
ED Past Surgical History: Other (ectopic)
Social History
Tobacco: Other (VAPS)
Alcohol: Occasional
Personal:
Living: with family
Employment: Employed
Phy Exam
General Physical Exam
General Presentation: no apparent distress
General age: appears stated age
General Skin: warm and dry
General Habitus: normal
General Mental: alert
General Hydration: appears well hydrated
ENT Exam
ENT Exam: other (Poor dentition right upper tooth mildly tender however no obvious fluctuance or swelling small opening to the gum region no drainage no trismus )
Neurological Exam
Neurological Exam: alert and oriented x3
Musculoskeletal Exam
Musculoskeletal Exam: full ROM
Skin Exam
Skin Exam: normal color and warm/dry
Psychiatric Exam
Psychiatric Exam: normal mood/affect
Course
Orders/Labs/Results
Orders:
Orders
03/02/25 11:18
Test Result ONCE
03/02/25 11:24
Complete Blood Count/With Diff Urgent
Comprehensive Metabolic Panel Urgent
HCG, Serum Qualitative Screen Urgent
Abnormal Lab Results
03/02/25
11:24
RBC 4.18 L 10^6/uL
(4.20-5.40)
Hgb 11.6 L g/dL
(12.0-16.0)
Hct 35.3 L %
(37.0-47.0)
MCHC 32.9 L g/dL
(33.0-37.0)
Chloride 108 H mmol/L
(98-107)
Glucose 119 H mg/dl
(70-99)
03/02/25 11:24
03/02/25 11:24
Vital Signs
Initial and Last Documented VS:
Initial Vital Signs
Temp Pulse Resp BP Pulse Ox
98.4 F 58 16 119/79 100
03/02/25 11:15 03/02/25 11:15 03/02/25 11:15 03/02/25 11:15 03/02/25 11:15
Last Documented Vital Signs
Temp Pulse Resp BP Pulse Ox
98.4 F 58 16 119/79 100
03/02/25 11:15 03/02/25 11:15 03/02/25 11:15 03/02/25 11:15 03/02/25 15:36
MDM/Problems Addressed
Differential Diagnosis Includes:
not limited to: Dental cavity, less likely abscess
MDM/Problems Addressed:
Patient with poor dentition. Patient placed on recent antibiotics however requesting referral for oral surgery. On exam she is no obvious fluctuance or abscess. Pt has small opening in the gum area however no drainage no trismus afebrile no
acute distress labs done prior to my exam are normal. Patient is very well-appearing and nontoxic will have patient continue on antibiotics and DC with oral surgery follow-up referral information given for patient
*Pulse Oximetry
SaO2: 100
Oxygen Mode of Delivery: Room air
Patient hypoxic: no
*Critical Care Note
Total Time (30-74mins, 75-104mins- exclusive of procedures): Not Applicable
ED Attending Note
-
Portions of this chart may have been created with voice recognition software.� Occasional wrong word or��sound alike� substitutions may have occurred due to the inherent limitations of voice recognition software.
Discharge Plan
Departure
Patient Disposition: Home (Routine Discharge)
Date of Disposition: 03/02/25
Time of Disposition: 15:36
Patient with high blood pressure during this ER visit?: No
Condition: Fair
Covid-19: Not Applicable
Discharge Problem:
Dental infection
Instructions: Dental Pain (DC)
Prescriptions:
No Action
Vitamin
1 tab PO DAILY
acetaminophen 325 mg Tablet
650 mg PO Q4HPRN PRN (Reason: mild pain) Qty: 0 0RF
ibuprofen 600 mg Tablet
600 mg PO Q6HPRN PRN (Reason: moderate pain/cramps) Qty: 0 0RF
Referrals:
[facility] [Outside]
Chandrakant Hansen MD, DDS [Active, Oral Surgery]
NONE,* [Family Provider, Internal Medicine]
Activity Restrictions/Additional Instructions:
Continue antibiotics and follow-up with oral surgery.
Return if any worsening of symptoms. In addition you were given family practice residency clinic for family doctor
Interventions
Interventions:
*Risk Screen - Suicide Last Done: 03/02/25 11:15
*General Assessment Last Done: 03/02/25 11:15
*Neglect/Abuse Screening Last Done: 03/02/25 11:15
*Nursing Disposition Last Done: 03/02/25 15:57
Discharge Date and Time
Discharge Date/Time: 03/02/25 15:58
Print Language: KAZAKH
== END 2025-03-02 15:58 | disposition home or self-care (01) ==
LOC: EMR 10:57
PROVIDERS: Student in an Organized Health Care Education/Training Program; EMERGENCY PHYSICIAN Emergency Medicine
DX: K04.7 Periapical abscess without sinus (principal); F41.9 Anxiety disorder, unspecified; F17.290 Nicotine dependence, other tobacco product, uncomplicated
CPT/HCPCS: 99283; 80053; 84703; 85025